=== PATIENT | male | born 1945 | race Caucasian/White ===

== ENCOUNTER 2021-07-26 15:53 | Observation (INO) ==
[2021-07-26 17:30] LABS: Basophils # 0.1 K/mcL (0.0-0.2); Basophils % 0.6 %; Eosinophils # 0.2 K/mcL (0.0-0.6); Eosinophils % 2.5 %; Hematocrit 40.8 % (37.5-50.1); Immature Granulocytes % 0.5 % (0-4); Lymphocytes # 1.4 K/mcL (0.6-4.6); Lymphocytes % 16.3 %; Mean Corpuscular HGB Conc 31.9 g/dL (31.6-35.5); Mean Corpuscular Hemoglobin 31.3 pg (28.0-33.3); Mean Corpuscular Volume 98.1 fL (83.0-100.0); Mean Platelet Volume 9.8 fL (9.4-12.4); Monocytes # 0.6 K/mcL (0.0-1.3); Monocytes % 6.5 %; Neutrophils # 6.5 K/mcL (1.6-8.9); Platelet Count 267 K/mcL (140-400); Red Blood Count 4.16 M/mcL (4.19-5.50); Red Cell Distribution Width 13.9 % (11.5-14.5); Segmented Neutrophils % 73.6 %; White Blood Count 8.8 K/mcL (4.3-11.1)
[2021-07-26 17:38] LABS: INR 1.7; Prothrombin Time 18.7 Seconds (9.4-12.1)
[2021-07-26 17:41] LABS: Activated Partial Thrombo Time 39.5 Seconds (26.0-36.0)
[2021-07-26 17:53] LABS: BUN/Creatinine Ratio 21 (6-26); Blood Urea Nitrogen 30 mg/dL (8-23); Calcium 8.9 mg/dL (8.6-10.3); Carbon Dioxide 27 mEq/L (23-29); Chloride 108 mEq/L (98-107); Glucose 62 mg/dL (70-105); Magnesium 1.9 mg/dL (1.6-2.6); Osmolality,Calculated 298 (280-300); Sodium 142 mEq/L (136-145); Troponin I < 0.03 ng/mL (< 0.04); eGFR For African Americans 58 (> 60); eGFR For Non-African Americans 47 (> 60)
[2021-07-26 18:06] LABS: Thyroid Stimulating Hormone 1.852 mcIU/mL (0.340-5.600)
[2021-07-26] MEDS ORDERED: Melatonin 3 MG TABLET PO PRN (20:39)
[2021-07-26] MEDS ORDERED: Acetaminophen 325 MG TABLET PO PRN (20:39)
[2021-07-26] MEDS ORDERED: Naloxone 0.4 MG/ML INJ IVP PRN (20:39)
[2021-07-26] MEDS ORDERED: Ondansetron 4 MG/2 ML VIAL IVP PRN (20:39)
[2021-07-26] MEDS ORDERED: Dextrose 4 GM Chewable Tablets PO PRN ×2 (20:45)
[2021-07-26] MEDS ORDERED: *HR* Dextrose 50 % in Water (Syg) 50 ML SYRINGE IVP PRN (20:45)
[2021-07-26] MEDS ORDERED: D5% in Water 1,000 ML IVC PRN (20:45)
[2021-07-26 21:40] LABS: Estimated Average Glucose 117 mg/dl; Hemoglobin A1C 5.7 %
[2021-07-27] MEDS ORDERED: Perflutren Lipid Microsphere 1.3 ML in 0.9 % Sodium Chloride 8.7 ML IVP PRN (00:17)
[2021-07-27 01:36] LABS: Basophils % 0.4 %; Eosinophils # 0.2 K/mcL (0.0-0.6); Eosinophils % 2.9 %; Hematocrit 37.1 % (37.5-50.1); Hemoglobin 11.8 g/dL (12.9-16.9); Immature Granulocytes % 0.4 % (0-4); Lymphocytes # 1.6 K/mcL (0.6-4.6); Lymphocytes % 22.5 %; Mean Corpuscular HGB Conc 31.8 g/dL (31.6-35.5); Mean Corpuscular Hemoglobin 31.1 pg (28.0-33.3); Mean Corpuscular Volume 97.6 fL (83.0-100.0); Mean Platelet Volume 9.5 fL (9.4-12.4); Monocytes # 0.7 K/mcL (0.0-1.3); Neutrophils # 4.7 K/mcL (1.6-8.9); Platelet Count 226 K/mcL (140-400); Red Cell Distribution Width 13.8 % (11.5-14.5); Segmented Neutrophils % 64.8 %; White Blood Count 7.3 K/mcL (4.3-11.1)
[2021-07-27 01:51] LABS: INR 1.4
[2021-07-27 01:53] LABS: Activated Partial Thrombo Time 36.6 Seconds (26.0-36.0)
[2021-07-27 01:56] LABS: Calcium 8.5 mg/dL (8.6-10.3); Magnesium 1.8 mg/dL (1.6-2.6); Phosphorous 3.5 mg/dL (2.7-4.5); Potassium 3.7 mEq/L (3.5-5.1)
[2021-07-27 01:57] LABS: Chol/HDL Ratio 2.6 (0-4.9)
[2021-07-27] MEDS ORDERED: 0.9 % Sodium Chloride 1,000 ML IVC SCH (02:45)
[2021-07-27] MEDS ORDERED: Ipratropium/Albuterol Neb 3 ML IH PRN (05:51)
[2021-07-27] MEDS ORDERED: Furosemide 20 MG/2 ML VIAL IVP ONE (06:00)
[2021-07-27] MEDS ORDERED: Calcium Gluconate 1gm/50mL 1 GM/50 ML BAG IVPB SCH (06:00)
[2021-07-27 07:16] VITALS: TEMP 98
[2021-07-27] MEDS ORDERED: Aspirin Enteric Coated 81 MG Tablet PO SCH (09:00)
[2021-07-27] MEDS ORDERED: Apixaban 5 MG TABLET PO SCH (09:00)
[2021-07-27] MEDS ORDERED: Sacubitril/Valsartan 24/26 MG 1 TABLET PO SCH (09:00)
[2021-07-27] MEDS ORDERED: Furosemide 40 MG TABLET PO SCH (09:00)
[2021-07-27 10:56] VITALS: BP 118/75; PULSE 86; O2SAT 96
[2021-07-27] MEDS ORDERED: hydrOXYzine pamoate 25 MG CAPSULE PO SCH (21:00)
== END 2021-07-27 15:22 | disposition home or self-care (01) ==
LOC: 2ANU 15:53 → EMEROOARM 15:53 → SUATTDRO 18:45 → 2ANU 20:04
PROVIDERS: ADMIT Internal Medicine; ATTEND Internal Medicine